=== PATIENT | female | born 1970 | race Caucasian/White ===

== ENCOUNTER 2023-02-07 19:26 | Outpatient (CLI) | payer BC, SELFPAY | END 2023-02-07 19:27 | disposition home or self-care (01) | LOC: SLEEP 19:26 | PROVIDERS: Visit Provider Otolaryngology | DX: G47.33 Obstructive sleep apnea (adult) (pediatric) (principal) | CPT/HCPCS: 95806 ==

== ENCOUNTER 2023-02-16 19:33 | Outpatient (CLI) | payer BC, SELFPAY ==
--- NOTE | 2023-02-23 09:00 | W.PM.SLEEP ---
Sleep Study Details Details Interpreting Provider: Claude Date of Sleep Study: 02/16/23 Sleep Study Details: STUDY TYPE:? Home unattended ? BMI:? 24.4 ORDERING PROVIDER:? Claude INDICATION:? Concerns about sleep apnea ? SLEEP SUMMARY:? 502.8 minutes monitored RESPIRATORY SUMMARY:? AHI 10.6. Note the majority of the study was done in the supine position Low oxygen 89 Snoring 7.4% PERIODIC LIMB MOVEMENTS OF SLEEP:? Not recorded during home study CARDIAC:? Range 54-91, mean 65.5 IMPRESSION:? Mild obstructive sleep apnea RECOMMENDATION: Treatment options include CPAP, dental appliance and/or airway expansion surgery.
== END 2023-02-16 19:34 | disposition home or self-care (01) ==
LOC: SLEEP 19:33
PROVIDERS: Visit Provider Otolaryngology
DX: G47.33 Obstructive sleep apnea (adult) (pediatric) (principal)
CPT/HCPCS: 95806